=== PATIENT | female | born 1960 | race Caucasian/White ===

== ENCOUNTER 2021-03-17 07:24 | Outpatient (CLI) | payer OTHER ==
[~2021-03-17 07:24] MED LIST: ATENOLOL PO; LORA2TAB PO
== END 2021-03-17 23:59 | disposition home or self-care (01) ==
LOC: LAB 07:24
PROVIDERS: ATTEND Orthopaedic Surgery
DX: Z01.812 Encounter for preprocedural laboratory examination (principal); Z20.822 Contact with and (suspected) exposure to COVID-19

== ENCOUNTER 2021-03-19 10:17 | Outpatient (CLI) | payer OTHER ==
[2021-03-19 11:03] LABS: HEMATOCRIT 36.4 % (31.2-41.9); MEAN CORPUSCULAR HEMOGLOBIN 29.2 uug (24.7-32.8); MEAN CORPUSCULAR VOLUME 87.9 fL (75.5-95.3); PLATELET COUNT (AUTO) 213 K/uL (179-408)
[2021-03-19 11:07] LABS: *BILIRUBIN,URIN NEGATIVE (NEGATIVE); *BLOOD, URINE 1+ (NEGATIVE); *CLARITY,URINE CLEAR (CLEAR); *COLOR,URINE YELLOW (YELLOW); *KETONES,URINE NEGATIVE (NEGATIVE); *UROBILINOGEN,URINE 0.2 E.U./dl (NORMAL); LEUKOCYTE ESTERASE ,URINE NEGATIVE (NEGATIVE); NITRITE, URINE NEGATIVE (NEGATIVE); PH,URINE 5.5 (5.0-8.0); UGLUCOSE NEGATIVE (NEGATIVE)
[2021-03-19 11:19] LABS: BILIRUBIN,TOTAL 0.4 mg/dL (0.2-1.0); CREATININE 0.7 mg/dL (0.6-1.3); POTASSIUM 4.5 mmol/L (3.5-5.1); TOTAL PROTEIN, SERUM 7.6 g/dL (6.4-8.2)
[2021-03-19 15:16] LABS: BACTERIA,URINE FEW /HPF (NONE SEEN); RBC,URINE 0-3 /HPF (0-3); SQUAMOUS EPITHELIAL CELL,UR FEW /HPF (NONE SEEN); WBC,URINE NONE SEEN /HPF (0-3)
[2021-03-19 15:17] LABS: URINE AMORPHOUS URATE MODERATE /HPF
== END 2021-03-19 23:59 | disposition home or self-care (01) ==
LOC: LAB 10:17
PROVIDERS: ATTEND Internal Medicine
DX: S83.232A Complex tear of medial meniscus, current injury, left knee, initial encounter (principal); M94.262 Chondromalacia, left knee; Z01.818 Encounter for other preprocedural examination; X58.XXXA Exposure to other specified factors, initial encounter; Y93.89 Activity, other specified; Y92.89 Other specified places as the place of occurrence of the external cause; Y99.8 Other external cause status
CPT/HCPCS: 36415; 71045; 85025; 85730; 93005

== ENCOUNTER 2021-03-20 07:12 | Day surgery (SDC) | payer OTHER ==
[2021-03-20] MEDS ORDERED: MORPHINE SULFATE PF 10 MG/10 ML AMPUL IV ONE (08:45)
[2021-03-20] MEDS ORDERED: BUPIVACAINE 0.25% 30 ML VIAL ONE (08:45)
[2021-03-20] MEDS ORDERED: FENTANYL CITRATE 100 MCG/2 ML AMPUL ONE (09:07)
[2021-03-20] MEDS ORDERED: ONDANSETRON 4 MG/2 ML VIAL ONE ×2 (10:25→11:05)
[2021-03-20] MEDS ORDERED: HYDROMORPHONE 1 MG/1 ML DISP.SYRIN ONE (10:25)
[2021-03-20] MEDS ORDERED: DEXAMETHASONE SOD PHOSPHATE 4 MG INJ ONE (11:05)
[2021-03-20] MEDS ORDERED: LIDOCAINE-MPF 2% 5 ML VIAL ONE (11:05)
[2021-03-20] MEDS ORDERED: KETOROLAC TROMETHAMINE 30 MG INJ ONE (11:05)
[2021-03-20] MEDS ORDERED: CEFAZOLIN 1 G VIAL ONE (11:05)
[2021-03-20] MEDS ORDERED: PROPOFOL 200 MG/20 ML BOTTLE ONE (11:05)
[2021-03-20] MEDS ORDERED: TRAMADOL HCL 50 MG TABLET ONE (12:21)
== END 2021-03-20 12:30 | disposition home or self-care (01) ==
LOC: DS 07:12
PROVIDERS: ATTEND Orthopaedic Surgery
DX: S83.272A Complex tear of lateral meniscus, current injury, left knee, initial encounter (principal); M94.262 Chondromalacia, left knee; M65.88 Other synovitis and tenosynovitis, other site; I10 Essential (primary) hypertension; M19.90 Unspecified osteoarthritis, unspecified site; F41.9 Anxiety disorder, unspecified; Z79.899 Other long term (current) drug therapy; Z98.890 Other specified postprocedural states; X58.XXXA Exposure to other specified factors, initial encounter; Y93.89 Activity, other specified; Y92.89 Other specified places as the place of occurrence of the external cause; Y99.8 Other external cause status
CPT/HCPCS: 29881; J0690; J1100; J1170; J1885; J2274; J2405 ×2; J3010; J3490 ×2; J7120; A4663